=== PATIENT | male | born 1990 | race Caucasian/White ===

== ENCOUNTER 2019-12-18 14:36 | Emergency (ER) | payer MEDICAID ==
[~2019-12-18] VITALS: Ht 188 cm; Wt 169.7 kg
[2019-12-18 14:38] VITALS: BP 154/101
== END 2019-12-18 15:24 | disposition home or self-care (01) ==
LOC: ED 15:15
DX: H60.502 Unspecified acute noninfective otitis externa, left ear (principal); H66.92 Otitis media, unspecified, left ear; H72.92 Unspecified perforation of tympanic membrane, left ear
CPT/HCPCS: 99283